=== PATIENT | male | born 1955 | race Caucasian/White ===

== ENCOUNTER 2017-06-22 16:52 | Emergency (ER) | payer OTHER ==
[2017-06-22] MEDS ORDERED: Sodium Chloride 0.9% 10 ML Syringe FLUSH PRN (17:09)
--- NOTE | 2017-06-22 17:11 | EDM.PDOC ---
ED HPI GENERAL MEDICAL PROBLEM - General Chief Complaint: Back Pain or Injury Stated Complaint: [facility] Time Seen by Provider: 06/22/17 17:09 Source of Information: Reports: Patient History Limitations: Reports: No Limitations - History of Present Illness INITIAL COMMENTS - FREE TEXT/NARRATIVE: The patient is a 61-year-old male who comes in after a fall from about 15 feet. He was working on top of an oil truck and he slipped his footing and fell. He landed on his left side. No loss of consciousness. He was ambulatory at the scene. He is complaining mostly of left trunk and flank pain. Denies headache. Mild diffuse neck pain. No frontal chest pain. He does have some pain in his left back area. Denies shortness of breath. No inspiratory pain. No abdominal pain or vomiting. He has been able to walk. Denies arm or leg pain. Pain is currently mild to moderate, declined pain medications initially. No recent illness. He does not take blood thinners. Left Mid-Posterior Flank Pain Score (Numeric/FACES): 7 - Related Data Allergies Allergy/AdvReac Type Severity Reaction Status Date / Time No Known Allergies Allergy Verified 06/22/17 17:01 Home Meds: Home Meds Ibuprofen 800 mg PO TID PRN #40 tablet 06/22/17 [Rx] Nexium. 1 tab PO DAILY 06/22/17 [History] Past Medical History Gastrointestinal History: Reports: GERD Social & Family History - Tobacco Use Smoking Status *Q: Never Smoker - Recreational Drug Use Recreational Drug Use: No ED ROS GENERAL - Review of Systems Review Of Systems: See Below Constitutional: Reports: No Symptoms Respiratory: Denies: Shortness of Breath Cardiovascular: Denies: Chest Pain GI/Abdominal: Denies: Abdominal Pain : Reports: Flank Pain Musculoskeletal: Reports: Neck Pain. Denies: Leg Pain Neurological: Reports: No Symptoms. Denies: Headache Hematologic/Lymphatic: Reports: No Symptoms ED EXAM,LOWER BACK PAIN/INJURY - Physical Exam Exam: See Below Exam Limited By: No Limitations General Appearance: Alert, WD/WN, No Apparent Distress Eye Exam: Bilateral Eye: EOMI, Normal Inspection Ears: Normal External Exam Nose: Normal Inspection Throat/Mouth: Normal Inspection, Normal Oropharynx, Normal Voice, No Airway Compromise Head: Atraumatic, Normocephalic Neck: Normal Inspection, Supple, Other (Mild diffuse posterior tenderness, no step-offs or deformities or point tenderness) Respiratory/Chest: No Respiratory Distress, Lungs Clear, Normal Breath Sounds, No Accessory Muscle Use, Chest Non-Tender Cardiovascular: Normal Peripheral Pulses, Regular Rate, Rhythm, No Murmur GI/Abdominal: Soft, Non-Tender, No Distention. No: Rebound Back Exam: Normal Inspection, Full Range of Motion, CVA Tenderness (L). No: CVA Tenderness (R), Vertebral Tenderness Extremities: Normal Range of Motion, Non-Tender, Other (Superficial abrasion to the right knee, full range of motion, no effusion, no bony tenderness) Neurological: Alert, Normal Mood/Affect, Normal Dorsiflexion, Normal Plantar Flexion, No Motor/Sensory Deficits, Oriented x 3 Psychiatric: Normal Affect, Normal Mood Skin Exam: Warm, Dry, Intact, Normal Color, No Rash Course - Vital Signs Last Recorded V/S: Last Vital Signs Temp 36.4 C 06/22/17 17:02 Pulse 76 06/22/17 17:02 Resp 14 06/22/17 17:02 BP 171/105 H 06/22/17 17:02 Pulse Ox 98 06/22/17 17:02 - Orders/Labs/Meds Orders: Active Orders 24 hr Category Date Time Status Peripheral IV Care [RC] . DIRECTED Care 06/22/17 17:10 Active PATIENT RETYPE [BBK] Stat Lab 06/22/17 17:43 Results TYPE AND SCREEN [BBK] Stat Lab 06/22/17 17:43 Results UA W/MICROSCOPIC [URIN] Stat Lab 06/22/17 17:09 Uncollected Sodium Chloride 0.9% [Saline Flush] Med 06/22/17 17:09 Active 10 ml FLUSH ASDIRECTED PRN Peripheral IV Insertion Adult [OM.PC] Routine Oth 06/22/17 17:09 Ordered Medication Orders Sodium Chloride (Saline Flush) 10 ml FLUSH ASDIRECTED PRN PRN Reason: Keep Vein Open Last Admin: 06/22/17 18:05 Dose: 10 ml Labs: Laboratory Tests 06/22/17 06/22/17 06/22/17 Range/Units 17:43 17:43 17:43 WBC 8.62 (4.23-9.07) K/mm3 RBC 4.22 L (4.63-6.08) M/mm3 Hgb 14.4 (13.7-17.5) gm/L Hct 40.3 (40.1-51.0) % MCV 95.5 H (79.0-92.2) fl MCH 34.1 H (25.7-32.2) pg MCHC 35.7 H (32.2-35.5) g/dl RDW Std Deviation 43.1 (35.1-43.9) fL Plt Count 206 (163-337) K/mm3 MPV 9.0 L (9.4-12.3) fl Neut % (Auto) 75.5 H (34.0-67.9) % Lymph % (Auto) 13.8 L (21.8-53.1) % Love % (Auto) 8.2 (5.3-12.2) % Eos % (Auto) 1.9 (0.8-7.0) Baso % (Auto) 0.3 (0.1-1.2) % Neut # (Auto) 6.50 H (1.78-5.38) K/mm3 Lymph # (Auto) 1.19 L (1.32-3.57) K/mm3 Love # (Auto) 0.71 (0.30-0.82) K/mm3 Eos # (Auto) 0.16 (0.04-0.54) K/mm3 Baso # (Auto) 0.03 (0.01-0.08) K/mm3 PT 10.1 (8.0-13.0) SECONDS INR 0.93 Sodium 143 (136-145) mEq/L Potassium 4.2 (3.5-5.1) mEq/L Chloride 107 (98-107) mEq/L Carbon Dioxide 28 (21-32) mEq/L Anion Gap 12.2 (5-15) BUN 17 (7-18) mg/dL Creatinine 1.1 (0.7-1.3) mg/dL Est Cr Clr Drug Dosing 75.44 mL/min Estimated GFR (MDRD) > 60 (>60) mL/min BUN/Creatinine Ratio 15.5 (14-18) Glucose 126 H (80-115) mg/dL Calcium 8.3 L (8.5-10.1) mg/dL Total Bilirubin 0.4 (0.2-1.0) mg/dL AST 33 (15-37) U/L ALT 43 (16-63) U/L Alkaline Phosphatase 60 (46-116) U/L Total Protein 7.2 (6.4-8.2) g/dl Albumin 3.9 (3.4-5.0) g/dl Globulin 3.3 gm/dL Albumin/Globulin Ratio 1.2 (1-2) Lipase 191 (73-393) U/L Blood Type Gel Antibody Screen 06/22/17 Range/Units 17:43 WBC (4.23-9.07) K/mm3 RBC (4.63-6.08) M/mm3 Hgb (13.7-17.5) gm/L Hct (40.1-51.0) % MCV (79.0-92.2) fl MCH (25.7-32.2) pg MCHC (32.2-35.5) g/dl RDW Std Deviation (35.1-43.9) fL Plt Count (163-337) K/mm3 MPV (9.4-12.3) fl Neut % (Auto) (34.0-67.9) % Lymph % (Auto) (21.8-53.1) % Love % (Auto) (5.3-12.2) % Eos % (Auto) (0.8-7.0) Baso % (Auto) (0.1-1.2) % Neut # (Auto) (1.78-5.38) K/mm3 Lymph # (Auto) (1.32-3.57) K/mm3 Love # (Auto) (0.30-0.82) K/mm3 Eos # (Auto) (0.04-0.54) K/mm3 Baso # (Auto) (0.01-0.08) K/mm3 PT (8.0-13.0) SECONDS INR Sodium (136-145) mEq/L Potassium (3.5-5.1) mEq/L Chloride (98-107) mEq/L Carbon Dioxide (21-32) mEq/L Anion Gap (5-15) BUN (7-18) mg/dL Creatinine (0.7-1.3) mg/dL Est Cr Clr Drug Dosing mL/min Estimated GFR (MDRD) (>60) mL/min BUN/Creatinine Ratio (14-18) Glucose (80-115) mg/dL Calcium (8.5-10.1) mg/dL Total Bilirubin (0.2-1.0) mg/dL AST (15-37) U/L ALT (16-63) U/L Alkaline Phosphatase (46-116) U/L Total Protein (6.4-8.2) g/dl Albumin (3.4-5.0) g/dl Globulin gm/dL Albumin/Globulin Ratio (1-2) Lipase (73-393) U/L Blood Type O POSITIVE Gel Antibody Screen Negative Meds: Medications Generic Name Dose Route Start Last Admin Trade Name Freq PRN Reason Stop Dose Admin Sodium Chloride 10 ml 06/22/17 17:09 06/22/17 18:05 Saline Flush FLUSH 10 ml ASDIRECTED PRN Administration Keep Vein Open Discontinued Medications Generic Name Dose Route Start Last Admin Trade Name Freq PRN Reason Stop Dose Admin Hydromorphone HCl 1 mg 06/22/17 17:56 06/22/17 18:04 Dilaudid IVPUSH 06/22/17 17:57 1 mg ONETIME ONE Administration Iopamidol 125 ml 06/22/17 18:37 06/22/17 18:56 Isovue-300 (61%) IVPUSH 06/22/17 18:38 125 ml ONETIME ONE Administration Ondansetron HCl Confirm 06/22/17 18:22 06/22/17 18:21 Zofran Administered 06/22/17 18:23 Not Given Dose 4 mg .ROUTE .STK-MED ONE Ondansetron HCl 4 mg 06/22/17 18:20 06/22/17 18:22 Zofran IVPUSH 06/22/17 18:21 4 mg ONETIME ONE Administration Ondansetron HCl 4 mg 06/22/17 19:10 06/22/17 19:15 Zofran IVPUSH 06/22/17 19:11 4 mg ONETIME ONE Administration Sodium Chloride 10 ml 06/22/17 18:37 06/22/17 18:56 Saline Flush FLUSH 06/22/17 18:38 10 ml ONETIME ONE Administration - Re-Assessments/Exams Free Text/Narrative Re-Assessment/Exam: 06/22/17 19:20 Patient was given Dilaudid for pain. He then became quite nauseous and had multiple episodes of vomiting. He is not complaining of any nausea or abdominal pain prior to this medication. CT of the C-spine and chest abdomen pelvis has been completed, awaiting radiology interpretation. 06/22/17 19:27 Labs show normal CBC and chemistry. 06/22/17 19:39 CT C-spine, chest abdomen pelvis negative for fracture. Patient is feeling better. Discussed return precautions. Departure - Departure Time of Disposition: 19:39 Disposition: Home, Self-Care 01 Clinical Impression: Flank pain Contusion, flank Qualifiers: Encounter type: initial encounter Qualified Code(s): S30.1XXA - Contusion of abdominal wall, initial encounter - Discharge Information Prescriptions: Ibuprofen 800 mg PO TID PRN #40 tablet PRN Reason: Pain Referrals: PCP,None [Primary Care Provider] - Forms: ED Department Discharge Additional Instructions: 1. Take ibuprofen as needed for pain 2. Ice areas of pain 3. Follow up with your primary doctor next week if not improving 4. Return to the ED if you have severe headache, abdominal pain, difficulty breathing, or any other concerning symptoms - My Orders Last 24 Hours: My Active Orders 06/22/17 17:09 UA W/MICROSCOPIC [URIN] Stat Sodium Chloride 0.9% [Saline Flush] 10 ml FLUSH ASDIRECTED PRN Peripheral IV Insertion Adult [OM.PC] Routine 06/22/17 17:10 Peripheral IV Care [RC] . DIRECTED 06/22/17 17:43 PATIENT RETYPE [BBK] Stat TYPE AND SCREEN [BBK] Stat - Assessment/Plan Last 24 Hours: My Active Orders 06/22/17 17:09 UA W/MICROSCOPIC [URIN] Stat Sodium Chloride 0.9% [Saline Flush] 10 ml FLUSH ASDIRECTED PRN Peripheral IV Insertion Adult [OM.PC] Routine 06/22/17 17:10 Peripheral IV Care [RC] . DIRECTED 06/22/17 17:43 PATIENT RETYPE [BBK] Stat TYPE AND SCREEN [BBK] Stat
[2017-06-22] MEDS ORDERED: HYDROmorphone 1 MG/ML Syringe IVPUSH ONE (17:56)
[2017-06-22] MEDS ORDERED: Ondansetron 4 MG/2 ML SDV IVPUSH ONE ×2 (18:20→19:10)
[2017-06-22] MEDS ORDERED: Ondansetron 4 MG/2 ML SDV ONE (18:22)
[2017-06-22] MEDS ORDERED: Iopamidol 612 MG/ML 150 ML Bottle IVPUSH ONE (18:37)
[2017-06-22] MEDS ORDERED: Sodium Chloride 0.9% 10 ML Syringe FLUSH ONE (18:37)
--- NOTE | 2017-06-22 19:34 | CT ---
CT cervical spine Technique: Multiple axial sections were obtained from above C1 inferiorly to the bottom of T1. Reconstructed sagittal and coronal images were reviewed. Comparison: No prior cervical spine imaging. Findings: Moderate to severe disc space narrowing at C3-C4 and C4-C5 with mild disc space narrowing noted C5-C6. Anterior osteophytes are seen at C3-C4 through C6-C7. Degenerative change is noted between the dens and anterior arch of C1. Mild degenerative change is scattered throughout the apophyseal joints. Mild bilateral neural foraminal stenosis noted at C4-C5. No fracture is seen. No abnormal subluxation is identified. Mild degenerative change is seen within the uncovertebral joints at C3-C4 and C4-C5. Impression: 1. Degenerative change as described above. 2. No acute fracture or abnormal subluxation is seen on CT study of the cervical spine. Diagnostic code #2
--- NOTE | 2017-06-22 19:37 | CT ---
CT chest Technique: Multiple axial sections through the chest were obtained. Intravenous contrast was utilized. Comparison: No prior chest imaging. Findings: Mediastinum and hilar regions appear within normal limits. No pericardial thickening is seen. No axillary adenopathy is identified. Lungs are clear with no pulmonary contusion. No pleural effusions or pneumothorax is seen. Bone window settings were reviewed which shows old right-sided rib fractures within the fifth and sixth ribs on the right side. No acute rib fracture is identified. Reconstructed lateral views shows no compression deformity within the thoracic spine. Sternum appears intact. Impression: 1. Several old right-sided rib fractures. 2. Nothing acute is seen on CT study of the chest. Diagnostic code #2 CT abdomen and pelvis Technique: Multiple axial sections were obtained from above the dome of the diaphragm inferiorly through the pubic symphysis. Intravenous contrast was utilized. No oral contrast has been given. Comparison: No prior abdominal imaging is available. Findings: Liver appears within normal limits. Spleen appears within normal limits. Adrenal glands show no nodule. Pancreas appears normal. Kidneys show contrast enhancement without hydronephrosis or mass. Aorta is without aneurysmal dilatation. No retroperitoneal adenopathy or mesenteric abnormalities are seen. No pelvic mass or adenopathy is seen. Delayed images shows contrast within distal ureters and within the bladder. No inflammatory change is seen. Appendix is seen which appears normal. No free fluid is seen. Bone window settings were reviewed which shows severe disc space narrowing at L5-S1 with vacuum phenomena and degenerative spurring causing bilateral neural foraminal stenosis worse on the left side. Impression: 1. Degenerative change at L5-S1 as described above. 2. Nothing acute is appreciated on CT study of the abdomen and pelvis. Diagnostic code #2
== END 2017-06-22 20:04 | disposition home or self-care (01) ==
LOC: JD.ED 16:52
DX: S30.1XXA Contusion of abdominal wall, initial encounter (principal); S80.211A Abrasion, right knee, initial encounter; K21.9 Gastro-esophageal reflux disease without esophagitis; Z79.899 Other long term (current) drug therapy; W17.89XA Other fall from one level to another, initial encounter; Y99.0 Civilian activity done for income or pay
CPT/HCPCS: 36415; 71260; 72125; 74177; 80053; 83690; 85025; 85610; 86850; 86900; 86901; 96374; 96375; 96376; 99285; J1170; J2405; J7050; Q9967; 99284

== ENCOUNTER 2017-06-26 11:42 | Emergency (ER) | payer OTHER ==
--- NOTE | 2017-06-26 12:33 | EDM.PDOC ---
ED HPI GENERAL MEDICAL PROBLEM - General Chief Complaint: Back Pain or Injury Stated Complaint: FELL OFF TRUCK MONDAY, PAIN NOT BETTER Time Seen by Provider: 06/26/17 12:15 Source of Information: Reports: Patient History Limitations: Reports: No Limitations - History of Present Illness INITIAL COMMENTS - FREE TEXT/NARRATIVE: Patient is 61-year-old male who fell 15 foot off a truck this past Monday. He was evaluated in the ED and had CT of the chest and abdomen and pelvis obtained revealing no concerning findings. Patient was discharged home on ibuprofen and oxycodone. Patient has been taking the oxycodone on intermittent basis. States the pain to his left shoulder blade, ribs, and low back worsens without taking this medication. He has increased stiffness to the injured areas. Has some bruising developed to the left lower back with pain upon palpation. States the pain has been consistent with really no change in severity. He has been utilizing warm compress to affected area as needed as well. He was seen by occupational med doctor with UA obtained revealing no hematuria or abnormal findings. He is concerned that the pain will not be manageable with the ibuprofen since he will be running out of the oxycodone today. He is from [place] and will be returning home this week. Plan is to follow-up with his primary care provider and occupational med talk. In addition with taking the narcotics she's had some increased difficulties with having a bowel movement. Started taking a stool softener that has normalized.Denies any chest pain, shortness of breath, abdominal pain, pain with urination, hematuria, blood in his stool, n/t to extremities, or any additional complaints. Treatments SCOREBOARD OPERATOR: Reports: NSAIDS, Other (see below) Other Treatments SCOREBOARD OPERATOR: oxycodone Back Pain Score (Numeric/FACES): 8 - Related Data Allergies Allergy/AdvReac Type Severity Reaction Status Date / Time No Known Allergies Allergy Verified 06/26/17 11:53 Home Meds: Home Meds Ibuprofen 800 mg PO TID PRN #40 tablet 06/22/17 [Rx] Nexium. 1 tab PO DAILY 06/22/17 [History] Orphenadrine [Norflex] 100 mg PO BID PRN #20 tab.er 06/26/17 [Rx] oxyCODONE 5 mg PO Q8HR PRN #25 tablet 06/26/17 [Rx] Past Medical History Gastrointestinal History: Reports: GERD - Past Surgical History Musculoskeletal Surgical History: Reports: Other (See Below) Other Musculoskeletal Surgeries/Procedures:: left wrist surgery Social & Family History - Tobacco Use Smoking Status *Q: Never Smoker - Caffeine Use Caffeine Use: Reports: Coffee, Tea - Recreational Drug Use Recreational Drug Use: No ED ROS GENERAL - Review of Systems Review Of Systems: ROS reveals no pertinent complaints other than HPI. ED EXAM,LOWER BACK PAIN/INJURY - Physical Exam Exam: See Below Exam Limited By: No Limitations General Appearance: Alert, WD/WN, No Apparent Distress (with sitting) Eye Exam: Bilateral Eye: PERRL Ears: Hearing Grossly Normal Nose: Normal Inspection Throat/Mouth: Normal Voice, No Airway Compromise Neck: Normal Inspection, Supple, Non-Tender, Full Range of Motion Respiratory/Chest: No Respiratory Distress, Lungs Clear, Normal Breath Sounds, No Accessory Muscle Use Cardiovascular: Normal Peripheral Pulses, Regular Rate, Rhythm, No Murmur GI/Abdominal: Normal Bowel Sounds, Soft, Non-Tender, No Distention Back Exam: Decreased Range of Motion, Other (Bruising noted to the left lower back with mild swelling, worsened with palpation. Mild pain with palpation to the inferior border o the left scapula. No swelling, bony abnormalities, or any additiona concerning finding on examination. ). No: Paraspinal Tenderness, Vertebral Tenderness Extremities: Normal Inspection, Non-Tender Neurological: Alert, Normal Mood/Affect, CN II-XII Intact, Normal Gait, No Motor /Sensory Deficits, Oriented x 3 Psychiatric: Normal Affect, Normal Mood Skin Exam: Warm, Dry, Intact Course - Vital Signs Last Recorded V/S: Last Vital Signs Temp 97.9 F 06/26/17 11:56 Pulse 86 06/26/17 11:56 Resp 16 06/26/17 11:56 BP 150/84 H 06/26/17 11:56 Pulse Ox 98 06/26/17 11:56 - Re-Assessments/Exams Free Text/Narrative Re-Assessment/Exam: Per patient pain is unchanged since accident. On examination no concerning findings noted. He'll be returning home this week to see an occupational med and also primary care provider. Will discharge patient home with prescription for oxycodone and also Norflex. Departure - Departure Time of Disposition: 12:34 Disposition: Home, Self-Care 01 Condition: Good Clinical Impression: Flank pain Contusion, flank Qualifiers: Encounter type: initial encounter Qualified Code(s): S30.1XXA - Contusion of abdominal wall, initial encounter Contusion, back Qualifiers: Encounter type: subsequent encounter Laterality: left Qualified Code(s): S20.222D - Contusion of left back wall of thorax, subsequent encounter - Discharge Information Prescriptions: oxyCODONE 5 mg PO Q8HR PRN #25 tablet PRN Reason: Pain Orphenadrine [Norflex] 100 mg PO BID PRN #20 tab.er PRN Reason: Spasms Instructions: Back Pain, Adult, [id number], Pain Medicine Instructions, Easy- to-Read Referrals: PCP,None [Primary Care Provider] - Forms: ED Department Discharge Additional Instructions: As discussed symptomatic treatment is appropriate this time. This includes applying warm compresses to affected area 4 times a day, 30 was in duration, with ice following 20 minutes duration, do not place ice directly on skin. Take the ibuprofen as prescribed. Utilize the Norflex as needed for back spasms. For severe pain take oxycodone as prescribed. Do not drive while taking the Norflex and/or oxycodone. Beware the oxycodone and Norflex taken together can cause increased drowsiness increase her risk for falling. No alcohol while taking the narcotics or muscle relaxer. Follow-up with occupational med doctor or primary care provider upon returning to [place] this week for reevaluation. PT referral may be required to speed up healing process. Return to the ED as needed for any new or worsening symptoms.
== END 2017-06-26 12:50 | disposition home or self-care (01) ==
LOC: JD.ED 11:42
DX: S30.1XXA Contusion of abdominal wall, initial encounter (principal); S20.222A Contusion of left back wall of thorax, initial encounter; Z79.899 Other long term (current) drug therapy; V89.9XXA Person injured in unspecified vehicle accident, initial encounter
CPT/HCPCS: 99283